=== PATIENT | female | born 1990 | race Caucasian/White ===

== ENCOUNTER 2020-09-01 12:11 | Emergency (ER) | payer OTHER, SELFPAY ==
[2020-09-01 12:31] VITALS: BP 125/61; PULSE 91; RESP 17; TEMP 36.9; O2SAT 98; BMI 34.1
--- NOTE | 2020-09-01 12:46 | ED.GENADULT ---
HPI - General Adult General Chief complaint: General Medical <DEEPAK Segura Last Filed: 09/01/20 12:49> Stated complaint: SORE THROAT <DEEPAK Segura Last Filed: 09/01/20 12:49> Time Seen by Provider: 09/01/20 12:32 <DEEPAK Segura Last Filed: 09/01/20 12:49> Source: patient <DEEPAK Segura Last Filed: 09/01/20 12:49> Mode of arrival: ambulatory <DEEPAK Segura Last Filed: 09/01/20 12:49> History of Present Illness HPI narrative: 30-year-old female with no significant past medical history presenting to ED complaining of sore throat and left ear pain since yesterday. Reports difficulty/pain with swallowing. Denies fever, chills, cough, CP/SOB, exposure to COVID-19 <DEEPAK Segura Last Filed: 09/01/20 12:49> Related Data Home medications: Previous Rx's Medication Instructions Recorded clindamycin HCl 300 mg PO TID 10 Days #30 cap 09/01/20 <DEEPAK Segura Last Filed: 09/01/20 12:49> Allergies/adverse reactions: Allergies Allergy/AdvReac Type Severity Reaction Status Date / Time amoxicillin Allergy Shortness Verified 09/01/20 12:34 of Breath ibuprofen Allergy Hives Verified 09/01/20 12:34 [From DayQuil Sinus Pressure/Pain] pseudoephedrine Allergy Hives Verified 09/01/20 12:34 [From DayQuil Sinus Pressure/Pain] <DEEPAK Segura Last Filed: 09/01/20 12:49> Review of Systems Review of Systems: Constitutional: No Weight loss, No Fever, No Chills ENT/Mouth: +L Ear Pain, No Nasal Congestion, No Sinus Pain, No Hoarseness, + sore throat, No Rhinorrhea, + Swallowing Difficulty Cardiovascular: No Chest Pain, No SOB Respiratory: No Cough, No Sputum, No Wheezing Gastrointestinal: No Nausea, No Vomiting, No Diarrhea, No Constipation, No Abdominal pain Skin: No Skin Lesions, No rash <DEEPAK Segura Last Filed: 09/01/20 12:49> Yes all other systems are reviewed and are negative <DEEPAK Segura - Last Filed: 09/01/20 12:49> [facility] Past Medical History Attestation statement: The following information was validated with the patient. <DEEPAK Segura - Last Filed: 09/01/20 12:49> Medical History: Medical History (Updated 09/02/20 @ 00:21 by Speedy Smith) No known health problems <DEEPAK Segura - Last Filed: 09/01/20 12:49> Social History Social History: Social History Advance Directives: No Advance Directives Information Provided: Yes <DEEPAK Segura - Last Filed: 09/01/20 12:49> Physical Exam Vital Signs: Vital Signs: Last Vital Signs Temp 98.5 F 09/01/20 12:31 Pulse 91 09/01/20 12:31 Resp 17 09/01/20 12:31 BP 125/61 09/01/20 12:31 Pulse Ox 98 09/01/20 12:31 Body Mass Index 34.1 <DEEPAK Segura - Last Filed: 09/01/20 12:49> Vital Signs: Last Vital Signs Temp 98.5 F 09/01/20 12:31 Pulse 91 09/01/20 12:31 Resp 17 09/01/20 12:31 BP 125/61 09/01/20 12:31 Pulse Ox 98 09/01/20 12:31 Body Mass Index 34.1 <Truman Goel MD - Last Filed: 09/04/20 02:42> Const: General: cooperative and healthy appearing <DEEPAK Segura - Last Filed: 09/01/20 12:49> Orientation/consciousness: patient oriented x3 <DEEPAK Segura - Last Filed: 09/01/20 12:49> Limitations: no limitations <DEEPAK Segura - Last Filed: 09/01/20 12:49> HENMT: Head: Yes normal to inspection <DEEPAK Segura - Last Filed: 09/01/20 12:49> Ears: hearing grossly normal bilaterally and TM's normal bilaterally <DEEPAK Segura - Last Filed: 09/01/20 12:49> General nose exam: Normal external nose present <DEEPAK Segura - Last Filed: 09/01/20 12:49> Face and sinus: Yes normal facial exam <DEEPAK Segura - Last Filed: 09/01/20 12:49> Mouth: no drooling and no muffled voice <DEEPAK Segura - Last Filed: 09/01/20 12:49> Throat: Yes uvula midline, Yes abnormal tonsil (Bilateral tonsillar swelling, erythema, & exudates) and No peritonsillar mass <DEEPAK Segura - Last Filed: 09/01/20 12:49> Eyes: General: appearance normal, both eyes and all related structures <DEEPAK Segura - Last Filed: 09/01/20 12:49> EOM: EOMs intact bilaterally <DEEPAK Segura - Last Filed: 09/01/20 12:49> Neck: Neck: Yes normal visual inspection and Yes no meningeal signs <DEEPKA Segura - Last Filed: 09/01/20 12:49> Resp: Effort & Inspection: normal respiratory effort and no stridor <DEEPAK Segura - Last Filed: 09/01/20 12:49> Skin: Rashes: no rashes <DEEPAK Segura - Last Filed: 09/01/20 12:49> Wounds: no wounds <DEEPAK Segura - Last Filed: 09/01/20 12:49> Neuro: General: patient oriented x3 and no meningeal signs <DEEPAK Segura - Last Filed: 09/01/20 12:49> Gait exam (Neuro): Normal gait present <DEEPAK Segura - Last Filed: 09/01/20 12:49> Extrem: General: Yes normal to inspection <DEEPAK Segura - Last Filed: 09/01/20 12:49> Course Course Course Narrative: I have reviewed the chart <Truman Goel MD - Last Filed: 09/04/20 02:42> Medical Decision Making MDM Narrative Medical decision making narrative: On exam VSS, NAD/well-appearing, exam consistent with strep pharyngitis. No respiratory compromise, talking in complete sentences, in no respiratory distress Will give p.o. 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 <DEEPAK Segura - Last Filed: 09/01/20 12:49> Lab Data Labs: Lab Results 09/01/20 Range/Units 12:56 COVID-19 ([facility]) Negative (Negative) COVID-19 Clin Com See Note <DEEPAK Segura - Last Filed: 09/01/20 12:49> Lab Results 09/01/20 Range/Units 12:56 COVID-19 ([facility]) Negative (Negative) COVID-19 Clin Com See Note <Truman Goel MD - Last Filed: 09/04/20 02:42> Discharge Plan Discharge Clinical Impression: Pharyngitis <DEEPAK Segura - Last Filed: 09/01/20 12:49> Patient Disposition: Home, Self-Care <DEEPAK Segura - Last Filed: 09/01/20 12:49> Instructions: Strep Throat (ED) <DEEPAK Segura - Last Filed: 09/01/20 12:49> Additional Instructions: You do have strep throat Clindamycin as antibiotic, take as prescribed Your given a dose of an oral steroid in the ED, that should help with the swelling In addition take Tylenol and Motrin at home for pain/swelling Your tested for COVID-19, the results should be back within a few hours, you will get a phone call In the meantime you need to self isolate, do not share drinks Based on your symptoms and history we have sent a COVID-19. Although your RESULT IS PENDING at this time. RESULTS should return within 72 hours. At this time you will be contacted with either NEGATIVE OR POSITIVE results. -Please wait until we contact you for your results. At this time you will be okay for discharge. Please plan for self quarantine for up to 14 days. Do not expose yourself to others. You may not go to work. If testing does come back negative you may return to activities as long as you are no longer having any symptoms for at least 3 days. Please continue to follow cold instructions and wash your hands frequently. You may take Tylenol as directed on the bottle for pain or fever. Patient seen in the emergency department on 04/17/2020 and should be excused from work until negative test results AND until 72 hours without any symptoms AND at least 10 days have passed since symptoms first appeared or since last exposure to COVID-19 positive patient CDC Guidelines for home isolation: - Stay away from others - WEAR A MASK if you are sick AND STAY HOME - Cover your mouth and nose with a tissue when you cough or sneeze. Dispose of tissues in a lined trash can and wash your hands immediately with soap and water for at least 20 seconds. If soap and water are not available, clean hands with alcohol-based hand referral agent that contains at least 60% alcohol. - Clean your hands often with soap and water for at least 20 seconds - Avoid touching your eyes, nose and mouth with unwashed hands - Do not share dishes, drinking glasses, cups, eating utensils, towels, or bedding with other people in your home. After using these items, wash them thoroughly with soap and water or put in the mixing plant operator. - Clean high-touch surfaces in your isolation area ( sick room and bathroom) every day; let a caregiver clean and disinfect high-touch surfaces in other areas of the home. Clean the area or item with soap and water or another detergent if it is dirty. Then, use a household disinfectant. - Limit contact with pets and animals: If you must care for a pet, wash your hands before and after interacting with them) <DEEPAK Segura - Last Filed: 09/01/20 12:49> Prescriptions: New clindamycin HCl 300 mg capsule 300 mg PO TID 10 Days Qty: 30 RF: 0 <DEEPAK Segura - Last Filed: 09/01/20 12:49> Referrals: Physician,Unknown [Primary Care Provider] - 2 days <DEEPAK Segura - Last Filed: 09/01/20 12:49> Stand Alone Forms: Work/School Release <DEEPAK Segura - Last Filed: 09/01/20 12:49> Interventions: ED Discharge Assessment Last Done: 09/01/20 13:03 <DEEPAK Segura - Last Filed: 09/01/20 12:49> Discharge Date/Time: 09/01/20 13:03 <DEEPAK Segura - Last Filed: 09/01/20 12:49>
[2020-09-01] MEDS: dexAMETHasone 2 MG TABLET 10 MG PO (12:52)
[2020-09-01 13:25] LABS: COVID-19 Test Negative (Negative)
== END 2020-09-01 13:03 | disposition home or self-care (01) ==
PROVIDERS: Physician Assistant; Emergency Provider Emergency Medicine
DX: J02.9 Acute pharyngitis, unspecified (principal); Z20.828 Contact with and (suspected) exposure to other viral communicable diseases
CPT/HCPCS: 87071; 87635; 87880; 99283; J8540

== ENCOUNTER 2020-09-15 14:32 | Outpatient (REF) | payer OTHER, SELFPAY ==
[2020-09-15 15:04] LABS: COVID-19 Test Positive (Negative)
== END 2020-09-15 14:33 | disposition home or self-care (01) ==
LOC: HO.EMPCOV 14:32
PROVIDERS: Visit Provider Internal Medicine
DX: Z20.828 Contact with and (suspected) exposure to other viral communicable diseases (principal)
CPT/HCPCS: 87635; C9803

== ENCOUNTER 2021-03-30 19:50 | Outpatient (REF) | payer OTHER, SELFPAY ==
[2021-03-30 21:17] LABS: COVID-19 Test Negative (Negative); IDNOW Serial# 9DD0AD1C
== END 2021-03-30 19:51 | disposition home or self-care (01) ==
LOC: HO.LAB 19:50
PROVIDERS: Visit Provider Internal Medicine
DX: Z20.822 Contact with and (suspected) exposure to COVID-19 (principal)
CPT/HCPCS: 36415; 87635

== ENCOUNTER 2022-01-04 06:04 | Emergency (ER) | payer OTHER, SELFPAY ==
[2022-01-04 06:14] VITALS: BP 149/79; PULSE 104; RESP 16; TEMP 37.3; O2SAT 100; BMI 36.6
--- NOTE | 2022-01-04 06:32 | ED.URI ---
HPI - URI/Sore Throat General Chief Complaint: Upper Respiratory Symptoms Stated Complaint: sore throat, post nasal drip Time Seen by Provider: 01/04/22 06:31 Source: patient Mode of arrival: ambulatory Limitations: no limitations History of Present Illness MD elicited complaint: sore throat and nasal congestion Onset (ago): day(s) (last night before bed) Consistency: constant Severity: mild Description of mucous: clear Able to tolerate fluids by mouth: Yes Exacerbating factors: swallowing Relieving factors: nothing Context: sick contacts (son has sore throat) Associated symptoms: chills, nasal congestion and sore throat Treatments prior to arrival: none Related Data Previous Rx's Medication Instructions Recorded clindamycin HCl 300 mg capsule 300 mg PO TID 10 Days #30 cap 09/01/20 azithromycin 250 mg tablet See Rx Instructions .ROUTE 01/04/22 .COMPLEX #6 tab Allergies Allergy/AdvReac Type Severity Reaction Status Date / Time amoxicillin Allergy Shortness Verified 09/01/20 12:34 of Breath ibuprofen Allergy Hives Verified 09/01/20 12:34 [From DayQuil Sinus Pressure/Pain] pseudoephedrine Allergy Hives Verified 09/01/20 12:34 [From DayQuil Sinus Pressure/Pain] Review of Systems Review of Systems: Constitutional : no Fever, positive Chills, no fatigue, no Malaise ENT/Mouth : positive sore throat, positive runny nose Eyes: No Discharge Cardiovascular : No Chest Pain, No SOB Respiratory : No Cough, No Sputum Gastrointestinal : No Nausea, No Vomiting, No Diarrhea Genitourinary : No Dysuria, No Urinary Frequency Musculoskeletal : no Myalgia Skin : No rash Neuro : No Headache PMFSH Past Medical History Medical History Asthma Social History Social History (Updated 01/04/22 @ 06:38 by Fiona Nielsen DO) Patient Tobacco Use Status: Never used Tobacco Advance Directives: No Patient : No Physical Exam Vital Signs: Vital Signs: Last Vital Signs Temp 99.2 F 01/04/22 06:14 Pulse 104 H 01/04/22 06:14 Resp 16 01/04/22 06:14 BP 149/79 H 01/04/22 06:14 Pulse Ox 100 01/04/22 06:14 BMI result Body Mass Index 36.6 Appearance: Alert. Oriented X3. No acute distress. Eyes: Pupils equal, round and reactive to light. ENT: Pharynx - uvula midline, moderate tonsilar swelling some white patches noted. tolerating secretions Neck: Normal inspection. Neck supple. CVS: Normal heart rate and rhythm. Pulses normal. Respiratory: No respiratory distress. Breath sounds normal. Abdomen: Soft and non-tender. Skin: Skin warm and dry. Normal skin color. Normal skin turgor. Extremities: No lower extremity edema. No calf ttp Neuro: Oriented X 3. No motor deficit. No sensory deficit. MDM - URI/Sore Throat MDM Narrative Medical decision making narrative: 31 yo female here with URI symptoms mostly sore throat with child who also has sore throat - not toxic, tolerating secretions vaccinated against COVID x 2 and has had COVID x 2. Suspect strep A pharyngitis. At this time no concern for deeper space infection. Will start on zpack and DC home Lab Data Labs: Lab Results 01/04/22 01/04/22 Range/Units 06:16 06:39 COVID-19 ([facility]) Negative (Negative) COVID-19 Clin Com See Note S. pyogenes GrpA AIDE Negative (Negative) Discharge Plan Discharge Clinical Impression: Acute infective tonsillitis Qualifiers: Pharyngitis/tonsillitis etiology: other specified organisms Qualified Code(s): J03.80 - Acute tonsillitis due to other specified organisms Patient Disposition: Home, Self-Care Instructions: Tonsillitis (ED) Additional Instructions: return to ED for any worsening symptoms or concerns COVID test negative strep test negative, being treated for tonsillitis. Prescriptions: New azithromycin 250 mg tablet See Rx Instructions .ROUTE .COMPLEX Qty: 6 0RF Rx Instructions: For 250 mg dose pack: take 500 mg today (day 1), then 250 mg for 4 days (days 2-5) No Action clindamycin HCl 300 mg capsule 300 mg PO TID 10 Days Qty: 30 0RF Stand Alone Forms: Work/School Release
[2022-01-04 06:37] LABS: COVID-19 Test Negative (Negative)
[2022-01-04 06:55] LABS: Strep A Nucleic Acid Negative (Negative)
== END 2022-01-04 07:06 | disposition home or self-care (01) ==
PROVIDERS: Emergency Medicine; Emergency Provider Emergency Medicine; PCP Internal Medicine
DX: J03.80 Acute tonsillitis due to other specified organisms (principal); Z20.822 Contact with and (suspected) exposure to COVID-19; R50.9 Fever, unspecified
CPT/HCPCS: 36415; 87635; 87651; 99283

== ENCOUNTER 2023-07-28 16:15 | Outpatient (REF) | payer OTHER, SELFPAY | END 2023-07-28 16:16 | disposition home or self-care (01) | LOC: HO.LAB 16:15 | PROVIDERS: Visit Provider Obstetrics & Gynecology | DX: Z13.89 Encounter for screening for other disorder (principal) ==

== ENCOUNTER 2023-12-20 09:48 | Emergency (ER) | payer OTHER, SELFPAY ==
--- NOTE | ~2023-12-20 | CT_ITS ---
EXAMINATION: CT head for stroke CLINICAL INFORMATION: Reason for Exam R sided facial numbness COMPARISON: None. TECHNIQUE: Contiguous axial imaging was performed from the skull base to vertex without intravenous contrast. Sagittal and coronal reformatted images were obtained. This CT examination was performed using dose optimization techniques as appropriate, variously including the following: * Automated exposure control * Adjustment of mA and/or kV according to patient size (this includes techniques or standardized protocols for targeted exams where dose is matched to indication/reason for exam; i.e. extremities or head) Use of iterative reconstruction technique DLP: 813 mGy-cm FINDINGS: No acute osseous or soft tissue abnormality. The mastoid air cells and visualized portions of the paranasal sinuses are well aerated. There is no evidence of acute intracranial hemorrhage or territorial infarction. No abnormal mass effect or midline shift is seen. Mercedes to white matter differentiation is well preserved. No extra-axial fluid collections are identified. No hydrocephalus. No significant volume loss. There is apparent hypodensity in the anterior right greater than left anterior frontal lobes which is highly favored to be artifactual. Otherwise, there is no abnormal attenuation within the brain parenchyma. CT/CT head for stroke IMPRESSION: Apparent parenchymal hypodensity involving the right greater than left anterior frontal lobes is highly favored to be artifactual. No acute intracranial abnormality including hemorrhage, mass effect, hydrocephalus, or acute territorial edematous infarction. . Above impression was communicated to Angelita Nielsen DO on 12/20/2023 10:37 AM
--- NOTE | ~2023-12-20 | CT_ITS ---
EXAMINATION: CT ANGIOGRAM HEAD CT ANGIOGRAM NECK CLINICAL INFORMATION: Reason for Exam R sided facial numbness COMPARISON: Earlier same day noncontrast head CT TECHNIQUE: Initial noncontrast design chief imaging of the head and neck was performed. Comparison is made with noncontrast head CT from earlier today. Test bolus sequences followed by intravenous administration 70 mL of Omnipaque 350. Helical imaging was performed in the axial plane from the aortic arch to the skull vertex. Delayed postcontrast imaging of the head was also performed. The data was processed at the space technologist workstation for generation of MIP sequences. Angled MIPs and volume rendered reformatted images were also generated at an offline 3D workstation. Stenoses are assessed in accordance with NASCET criteria unless otherwise indicated. DLP: 1581 mGy-cm This CT examination was performed using dose optimization techniques as appropriate, variously including the following: *Automated exposure control. *Adjustment of mA and/or kV according to patient size (this includes techniques or standardized protocols for targeted exams where dose is matched to indication/reason for exam; i.e. extremities or head). *Use of iterative reconstruction technique. FINDINGS: CT Head: Please refer to report from immediately preceding noncontrast head CT. No abnormal intracranial enhancement. CT Neck: The thyroid gland and remaining cervical soft tissues are within normal limits. No significant abnormalities of the cervical spine. CT Upper Chest: The visualized lung apices and upper mediastinum are within normal limits. Neck CTA: The proximal vessels in the mediastinum and lower neck are somewhat suboptimally evaluated due to streak artifact related to patient body habitus. Aortic Arch: Normal contour and caliber. Two vessel branching pattern of the arch with left common carotid artery arising from the brachiocephalic trunk. Great Vessel Origins: No significant stenosis of the branch origins. Right Common Carotid Artery: No focal stenosis or occlusion. Cervical Right Internal Carotid Artery: Normal opacification without focal stenosis or occlusion. Left Common Carotid Artery: No focal stenosis or occlusion. Cervical Left Internal Carotid Artery: Normal opacification without focal stenosis or occlusion. Cervical Right Vertebral Artery: No focal stenosis or occlusion. Cervical Left Vertebral Artery: No focal stenosis or occlusion. Brain CTA: Intracranial Internal Carotid Arteries: No focal stenosis or occlusion. Right Anterior Cerebral Artery: Normal A1 segment. Normal opacification of the distal FER segments. Left Anterior Cerebral Artery: Normal A1 segment. Normal opacification of the distal FER segments. Anterior Communicating Artery: Normal. Right Middle Cerebral Artery: Normal M1 segment of the MCA without focal stenosis or occlusion. Normal arborization of the distal segments. Left Middle Cerebral Artery: Normal M1 segment of the MCA without focal stenosis or occlusion. Normal arborization of the distal segments. Right Vertebral Artery: Normal V4 segment. Left Vertebral Artery: Normal V4 segment. Basilar Artery: Normal without focal stenosis or occlusion. Normal appearance of the proximal superior cerebellar arteries. Right Posterior Cerebral Artery: Normal P1 segment. Normal opacification of the distal EQUIPMENT ENGINEERING TECHNICIAN segments. Left Posterior Cerebral Artery: Normal P1 segment. Normal opacification of the distal EQUIPMENT ENGINEERING TECHNICIAN segments. Normal opacification of the superior sagittal, straight, transverse, and sigmoid sinuses. CT/CT angio head neck stroke IMPRESSION: No arterial high grade stenosis or large vessel occlusion in the head or neck. Above impression was communicated to Angelita Nielsen DO on 12/20/2023 10:42 AM
[2023-12-20 09:56] VITALS: BP 143/57; PULSE 79; RESP 18; TEMP 24.4; O2SAT 99; BMI 36.3
[2023-12-20 10:04] VITALS: RESP 18
--- NOTE | 2023-12-20 10:10 | ECG_ITS ---
Test Reason : facial numbness Blood Pressure : / mmHG Vent. Rate : 076 BPM Atrial Rate : 076 BPM P-R Int : 184 ms QRS Dur : 078 ms QT Int : 406 ms P-R-T Axes : 030 037 012 degrees QTc Int : 456 ms Normal sinus rhythm Low voltage QRS Borderline ECG No previous ECGs available Referred By: Angelita Nielsen Electronically Signed By:ROSE OAKES
[2023-12-20 10:19] LABS: MANUAL DIFF FLAG NO
[2023-12-20 10:20] LABS: Basophils Percent Auto 0.3 % (0-2); Eosinophils Absolute Auto 0.3 X10*3/uL (0.0-0.4); Eosinophils Percent Auto 2.3 % (0-4); Hemoglobin 11.9 g/dl (12.0-16.0); Imm Gran Abs Auto 0.03 X10*3/uL (0.00-0.03); Imm Gran Pct Auto 0.3 % (0.0-0.4); Lymphocytes Percent Auto 37.1 % (20-40); Mean Corpuscular Hemoglobin 27.8 pg (27.0-33.0); Mean Corpuscular Volume 81.8 fL (80.0-98.0); Mean Platelet Volume 8.6 fL (9.4-12.3); Monocytes Absolute Auto 0.6 X10*3/uL (0.1-1.2); Monocytes Percent Auto 5.1 % (2-11); Neutrophils Percent Auto 54.9 % (45-73); Platelet Count 306 X10*3/uL (160-400); Red Blood Count 4.28 X10*6/uL (4.20-5.50); Red Cell Distribution Width 12.5 % (11.0-16.0); White Blood Count 10.9 X10*3/uL (4.8-10.8)
--- NOTE | 2023-12-20 10:23 | PC.NURSE ---
pt is alert and oriented, skin appropriate for ethnicity, respirations even and unlabored, pt reports at 0600 stared with right sided facial numbness, right eye blurriness that is starting to improve slowly, and a headache-pt reports hx of headaches but this feels different, no light sensitivity or noise sensitivity, no visible facial droop, no arm drift and strength is strong and equal and moving all extremities. vs stable and ns on the monitor
[2023-12-20 10:29] LABS: Prothrombin Time 11.6 SEC (11.1-13.3)
--- NOTE | 2023-12-20 10:29 | ED_ITS ---
HPI - Neuro Symptoms/Deficit General Chief Complaint: Neuro Symptoms/Deficit Stated Complaint: R Side Facial Numbness Tongue Feels Heavy Time Seen by Provider: 12/20/23 10:00 Source: patient and old records reviewed Mode of arrival: ambulatory Limitations: no limitations History of Present Illness HPI Narrative: 33 yo female with PMH of migraines, idiopathic intracranial hypertension on diammox no recent LP drainage, not on OCPs or thinners. She was at work today and at 6am started with fogginess in R eye and numbness R face then headache on the R side. She still has a headache and the numbness on R face. Just dx this week with strep pharyngitis and treated with zpak. No recent trauma to the head or neck Onset (ago): hour(s) (6am today) Last Observed Normal: 06:00 Location: right face History of same: No Severity: mild Quality: numb Relieving factors: none Exacerbating factors: none Context: sudden onset On Anticoagulants: No Associated symptoms: headaches Treatments Prior to Arrival: none Related Data Previous Rx's Medication Instructions Recorded clindamycin HCl 300 mg capsule 300 mg PO TID 10 days #30 caps 09/01/20 azithromycin 250 mg tablet See Rx Instructions PO .COMPLEX #6 01/04/22 tabs Allergies Allergy/AdvReac Type Severity Reaction Status Date / Time amoxicillin Allergy Shortness Verified 12/20/23 10:02 of Breath ibuprofen Allergy Hives Verified 12/20/23 10:02 [From DayQuil Sinus Pressure/Pain] pseudoephedrine Allergy Hives Verified 12/20/23 10:02 [From DayQuil Sinus Pressure/Pain] Review of Systems 2 Review of Systems: Constitutional : No Fever, No Chills, No Fatigue ENT/Mouth : No sore throat, No Rhinorrhea Eyes: No Eye Pain, No Swelling, No Redness Cardiovascular : No Chest Pain, No SOB, No Dyspnea on Exertion Respiratory : No Cough, No Sputum Gastrointestinal : No Nausea, No Vomiting, No Diarrhea, No abdominal Pain Genitourinary : No Dysuria, No Urinary Frequency, No Hematuria, Musculoskeletal : No joint pain, No Myalgias, No Joint Swelling Skin : No Skin Lesions, No rash Neuro : No Weakness, pos Numbness, No Dizziness, positive Headache Psych : No Anxiety/Panic, No Depression All other systems reviewed and are negative [facility] Past Medical History Attestation statement: The following information was validated with the patient. Source: old records reviewed Medical History (Updated 12/20/23 @ 12:30 by Angelita Nielsen DO) Migraine Pseudotumor cerebri Asthma Social History Social History Patient Tobacco Use Status: Never used Tobacco Advance Directives: No Physical Exam 2 Vital Signs: Vital Signs: Last Vital Signs Temp 76 F L 12/20/23 09:56 Pulse 79 12/20/23 09:56 Resp 18 12/20/23 10:04 BP 143/57 H 12/20/23 09:56 Pulse Ox 99 12/20/23 09:56 O2 Del Method Room Air 12/20/23 09:56 BMI result Body Mass Index 36.3 Appearance: Alert. Oriented X3. No acute distress. Eyes: Pupils equal, round and reactive to light. no visual field deficits ENT: Pharynx normal. Neck: Normal inspection. Neck supple. CVS: Normal heart rate and rhythm. Pulses normal. Respiratory: No respiratory distress. Breath sounds normal. Abdomen: Soft and non-tender. Skin: Skin warm and dry. Normal skin color. Normal skin turgor. Extremities: No lower extremity edema. No calf ttp Neuro: Oriented X 3. No motor deficit. No sensory deficit. CN2-12 intact. Reports R facial numbness on R cheek Course Course Course Narrative: headache resolved Medications Administered Discontinued Medications Generic Name Dose Route Start Last Admin Trade Name Freq PRN Reason Stop Dose Admin Diphenhydramine HCl 25 mg 12/20/23 10:10 12/20/23 10:39 Diphenhydramine Hcl 50 Mg/Ml Vial IVPUSH 12/20/23 10:11 25 mg ONCE ONE Administration Sodium Chloride 1,000 mls @ 999 mls/hr 12/20/23 10:15 12/20/23 12:22 Ns IV 12/20/23 11:15 Infused .Q1H1M JESSICA Infusion Iohexol 100 ml 12/20/23 10:42 12/20/23 10:43 Iohexol 350 Mg/Ml 100 Ml Infus..Btl IV 12/20/23 10:43 70 ml ONCE ONE Administration Metoclopramide HCl 10 mg 12/20/23 10:10 12/20/23 10:39 Metoclopramide Hcl 10 Mg/2 Ml Vial IVPUSH 12/20/23 10:11 10 mg ONCE ONE Administration Medical Decision Making Medical Decision Making [facility] Narrative: 33 yo female with PMH of migraines, idiopathic intracranial hypertension on diammox - compliant here with c/o visual changes then facial numbness with symptoms starting at 6am. She presents at 4+ hours and CT scans done and out of window at 4.5 hours not a candidate for TNK her symptoms are so mild as well and I suspect a complex migraine. She has no visual field deficits. She has a normal BP as well. She is not toxic. I have ordered CT and CTA along with labs and IV medications for migraine. Her IOP is 17 on the R side as well Differential Diagnosis Differential Diagnoses: The differential diagnosis associated with the presentation includes complex migraine, atypical for CVA Admission/Observation Consideration of admission/observation: Escalation of care including admission/observation considered symptoms resolved, facial numbness moved to L side of face that is not consistent with stroke pattern has had hx of wandering parasthesias in the past with B12 deficiency. she notes R eye is improved has no visual loss is going to call her neuroophthalmologist on DC pressures are normal stable for DC at this time Lab Data [facility] Lab Attestation statement: I reviewed the patient's lab results. 12/20/23 10:15 12/20/23 10:15 Labs: Lab Results 12/20/23 Range/Units 10:15 WBC 10.9 H (4.8-10.8) X10*3/uL RBC 4.28 (4.20-5.50) X10*6/uL Hgb 11.9 L (12.0-16.0) g/dl Hct 35.0 L (37.0-47.0) % MCV 81.8 (80.0-98.0) fL MCH 27.8 (27.0-33.0) pg MCHC 34.0 (31.0-35.0) g/dl RDW 12.5 (11.0-16.0) % Plt Count 306 (160-400) X10*3/uL MPV 8.6 L (9.4-12.3) fL Immature Gran % (Auto) 0.3 (0.0-0.4) % Neut % (Auto) 54.9 (45-73) % Lymph % (Auto) 37.1 (20-40) % Mobile % (Auto) 5.1 (2-11) % Eos % (Auto) 2.3 (0-4) % Baso % (Auto) 0.3 (0-2) % Lymph # (Auto) 4.0 (1.2-4.9) X10*3/uL Mobile # (Auto) 0.6 (0.1-1.2) X10*3/uL Eos # (Auto) 0.3 (0.0-0.4) X10*3/uL Baso # (Auto) 0.0 (0.0-0.2) X10*3/uL Abs Immat Gran (auto) 0.03 (0.00-0.03) X10*3/uL Absolute Neuts (auto) 6.0 (2.0-8.3) x10*3/uL Absolute Nucleated RBC 0.000 (0.0-0.012) X10*3/uL Nucleated RBC % (auto) 0.0 (0.0-0.2) /100WBC PT 11.6 (11.1-13.3) SEC INR 1.0 (0.9-1.1) Sodium 137 (135-145) mmol/L Potassium 4.1 (3.3-5.1) mmol/L Chloride 106 (96-108) mmol/L Carbon Dioxide 25 (22-29) mmol/L Anion Gap 10 L (12-20) BUN 16 (9-16) mg/dL Creatinine 0.65 (0.5-1.4) mg/dL Estim Creat Clear Calc 140.7 Estimated GFR > 60 Random Glucose 100 (60-115) mg/dL Calcium 9.3 (8.4-10.2) mg/dL Magnesium 2.0 (1.6-2.6) mg/dL Total Bilirubin 0.3 (0.0-1.0) mg/dL Direct Bilirubin 0.1 (0.0-0.5) mg/dL AST 15 (5-31) U/L ALT 20 (0-31) U/L Alkaline Phosphatase 63 (39-117) U/L Total Protein 7.8 (6.5-8.0) g/dL Albumin 4.0 (3.5-5.0) g/dL Beta HCG, Quant < 2 mIU/mL Independent Interpretation I performed an independent interpretation of an: EKG and CT Scan (no ICH, no acute findings, no LVO) Interpretation: Rate: 76 Rhythm: NSR [employer]: normal Normal P waves. Normal KIMBERLY. Normal QRS complex. ST T wave : normal no JAYANT qTC: 456 prior studies: no acute ischemia The study has been interpreted contemporaneously by me. . Radiology Impression Discussion of test interpretation with radiology: I discussed test interpretation with the radiologist and I have reviewed the radiologist's reading. Radiologist Impression: CT : no ICH 1035am External Record Review External record reviewed: Inpatient record NIH Stroke Scale Internal: Initial- Upon Arrival Level of Consciousness: Alert Level of Consciousness Questions: Answers both questions correctly Level of Consciousness Commands: Performs both tasks correctly Best Gaze: Normal Visual: No visual loss Facial Palsy: Normal Motor Arm (Right): No drift Motor Arm (Left): No drift Motor Leg (Right): No drift Motor Leg (Left): No drift Limb Ataxia: Absent Sensory: Mild to moderate sensory loss Best Language: No aphasia Dysarthia: Normal Extinction and Inattention: No abnormality Score: 1 Critical Care Time Critical Care Time Critical Care Time: Yes Total Critical Care Time: 35 Attestation: stroke protocol, CTA workup, IVF and medications. I attest to this time spent taking care of the patient Discharge Plan Discharge Clinical Impression: Facial paresthesia Acute headache Qualifiers: Headache type: unspecified Intractability: not intractable Qualified Code(s): R 51.9 - Headache, unspecified Patient Disposition: Home, Self-Care Instructions: Acute Headache (ED), Paresthesia (ED) Additional Instructions: CT head and CTA negative at this time pressure in R eye is 17 labs stable please call your eye doctor on discharge return for worsening symptoms or any other concerns take it easy and rest today Prescriptions: No Action clindamycin HCl 300 mg capsule 300 mg PO TID 10 Days Qty: 30 0RF azithromycin 250 mg tablet See Rx Instructions .ROUTE .COMPLEX Qty: 6 0RF Rx Instructions: For 250 mg dose pack: take 500 mg today (day 1), then 250 mg for 4 days (days 2-5)
[2023-12-20] MEDS: Metoclopramide HCl 10 MG/2 ML VIAL IVPUSH (10:39)
[2023-12-20] MEDS: diphenhydrAMINE HCL 50 MG/ML VIAL 25 MG IVPUSH (10:39)
[2023-12-20] MEDS: 0.9 % Sodium Chloride 1,000 ML 999 ML IV (10:39)
[2023-12-20 10:43] LABS: Alanine Aminotransferase 20 U/L (0-31); Alkaline Phosphatase 63 U/L (39-117); Anion Gap 10 (12-20); Aspartate Amino Transferase 15 U/L (5-31); Bilirubin Direct 0.1 mg/dL (0.0-0.5); Bilirubin Total 0.3 mg/dL (0.0-1.0); Blood Urea Nitrogen 16 mg/dL (9-16); Calcium 9.3 mg/dL (8.4-10.2); Carbon Dioxide 25 mmol/L (22-29); Chloride 106 mmol/L (96-108); Creatinine Clr Calc Pharmacy 140.7; Estimated Glomerular Filt Rate > 60; Glucose Random 100 mg/dL (60-115); HCG Quantitative < 2 mIU/mL; Potassium 4.1 mmol/L (3.3-5.1); Sodium 137 mmol/L (135-145); Total Protein 7.8 g/dL (6.5-8.0)
[2023-12-20] MEDS: iohexoL 350 MG/ML 100 ML INFUS..BTL IV (10:43)
[2023-12-20 12:36] VITALS: BP 117/63; PULSE 82; RESP 16; TEMP 36.8; O2SAT 99
== END 2023-12-20 12:39 | disposition home or self-care (01) ==
PROVIDERS: Emergency Provider Emergency Medicine; PCP Internal Medicine
DX: R20.2 Paresthesia of skin (principal); R51.9 Headache, unspecified; G93.2 Benign intracranial hypertension; R29.701 NIHSS score 1
CPT/HCPCS: 36415; 70450; 70496; 70498; 80048; 80076; 83735; 84702; 85025; 85610; 93005; 96361; 96374; 96375; 99284; J1200; J2765; Q9967

== ENCOUNTER → 2023-12-20 10:10 | Outpatient (BNV) | payer OTHER, SELFPAY | PROVIDERS: Emergency Provider Emergency Medicine; PCP Internal Medicine; Visit Provider Internal Medicine | DX: R20.2 Paresthesia of skin (principal) | CPT/HCPCS: 93010 ==

== ENCOUNTER → 2025-08-06 22:00 | Outpatient (REF) | payer OTHER, SELFPAY ==
--- OUTSIDE RECORDS SUMMARY | 2025-08-06 22:18 | XMS_ITS ---
Author Name [facility] Organization Unknown Care Team Organization Name Specialty Phone Email Start Date End Da te [facility] Abe Weaver Primary Care 08/30/2022 06/10/20 24
--- OUTSIDE RECORDS SUMMARY | 2025-08-06 22:18 | XMS_ITS | Clinical Summary ---
Author Organization [facility] Address [address] [place] [address] Care Team Providers Care Ehs Manager Name Role Phone Pcp, No Primary Care Provider Unavailabl e Encounters Date Type Department Care Team Description 05/14/2025 Travel from Last 3 Months Immunizations Immunization Administration Dates Next Due Hep B, Adolescent or Pediatric 06/01/2000,1998,08/03/1999 MMR 09/09/1992,12/28/1989 Tdap 03/09/2017 Social History Tobacco Use Types Packs/Day Years Used Date Smoking Tobacco: Never Assessed Comments Unknown Sex and Gender Information Value Date Recorded Sex Assigned at Not on file Legal Sex Female 10:07 AM EDT Gender Identity Not on file Sexual Orientation Not on file Plan of Treatment Health Maintenance Due Date Last Done Comments Hepatitis C Virus Screening 1988 HIV Screening 2001 Pap Smear (Ages 21-65) 2009 Influenza Vaccine 05/23/2025 07/13/2015 COVID-19 Vaccine (3 - 2024-2 6 season) 2025 07/23/2021, 07/02/2021 DTaP/Tdap/Td Vaccines (2 - T d or Tdap) 03/09/2027 03/09/2017 Hepatitis B Vaccines Completed 06/01/2000, 09/08/1999, 08/03/1999 HPV Vaccines (No Doses Required) Completed Pneumococcal Vaccine: Pediatric (0-5 Years) and At-Risk Patients (6 to 49 Years) Aged Out No longer eligible b ased on patient's age to complete this topic Care Teams Ehs Manager Relationship Specialty Start Date End Date Pcp, No PCP - General General Medicine 04/16/25
--- OUTSIDE RECORDS SUMMARY | 2025-08-06 22:18 | XMS_ITS | Clinical Summary ---
Author Organization [facility] Address [address] [place] [address] Phone Care Team Providers Care Supervisor Cabinetmaker Name Role Phone Unavailable Primary Care Provider Unavailabl e Immunizations Immunization Administration Dates Next Due DT 10/05/1998 DTP 09/09/1992, 0,07/27/1989,04/27,1988 HPV, Quadrivalent 09/11/2008 Hep B, ped/adol 06/01/2000,09/08/1999,08/03/1999 Hib (PRP-T) 02/15/1990 Influenza, injectable, trivalent 09/11/2008,08/23 MMR 09/09/1992,12/28/1989 Meningococcal Conj (Menactra) MCV4P 09/11/2008 OPV 09/09/1992, 0,07/27/1989,04/27,1988 Pneumococcal Polysaccharide 01/06/1993 Td (adult) (MBL), 2 Lf tetan us toxoid, PF, adsorbed 10/22/1998 Tdap 05/28/2008 Family History Relation Name Status Comments Brother 1 Alive Brother: Alive and well, Alive and well Brother 2 Alive Brother: Alive and well, Alive and well Father Alive Father: d 05/27 Mother Alive Mother: Alive a nd well Sister 1 Alive Sister: Alive a nd well, Alive and well Sister 2 Alive Sister: Alive a nd well, Alive and well Social History Tobacco Use Types Packs/Day Years Used Date Smoking Tobacco: Never Assessed Comments Unknown Sex and Gender Information Value Date Recorded Sex Assigned at Not on file Legal Sex Female 4:36 PM EDT Gender Identity Not on file Sexual Orientation Not on file Plan of Treatment Health Maintenance Due Date Last Done Comments Varicella Vaccines (1 of 2 - 13+ 2-dose series) 2001 HPV Vaccines (2 - 3-dose series) 10/09/2008 09/11/2008 DTaP,Tdap,and Td Vaccines (7 - Td or Tdap) 05/28/2018 05/28/2008, 10/22/1998, 10/05/1998, Additional history exists Influenza Vaccines (#1) 2025 09/11/2008, 09/08 COVID-19 Vaccine ( season) 2025 HIB Vaccines Completed 02/15/1990 IPV Vaccines Completed 09/09/1992, 05/1990, 07/27/1989, Additional history exists MMR Vaccines Completed 09/09/1992, 12/28/1989 Pneumococcal Vaccine Aged Out 01/06/1993 No long er eligible based on patient's age to complete this topic Hepatitis B Vaccines Completed 06/01/2000, 09/08/1999, 08/03/1999 Meningococcal Vaccine Aged Out 09/11/2008 No kati tiny eligible based on patient's age to complete this topic Hepatitis A Vaccines Aged Out No long er eligible based on patient's age to complete this topic Men B Vaccine Aged Out No longer elig ible based on patient's age to complete this topic
--- OUTSIDE RECORDS SUMMARY | 2025-08-06 22:18 | XMS_ITS | Encounter Summary ---
Author Organization [facility] Address [address] [place] [id number] Phone Care Team Providers Care Vessel Traffic Officer Name Role Phone Selma Cohen MD Primary Care Provider Encounter Details Date Type Department Care Team (Late st Contact Info) Description 06/08/2017 Conversion Encounter [facility] [address] [place] [address] Social History Tobacco Use Types Packs/Day Years Used Date Smoking Tobacco: Never Assessed Comments Unknown Sex and Gender Information Value Date Recorded Sex Assigned at Not on file Legal Sex Female 4:36 PM EDT Gender Identity Not on file Sexual Orientation Not on file documented as of this encounter Plan of Treatment Not on file documented as of this encounter Visit Diagnoses Not on filedocumented in this encounter Care Teams Vessel Traffic Officer Relationship Specialty Start Date End Date Selma Cohen MD [address] [place] [address] PCP - General 06/02/17 02/02/23 documented as of this encounter
== END ==
LOC: HO.SL 22:00
PROVIDERS: PCP Internal Medicine; Visit Provider Nurse Practitioner Primary Care
DX: Z13.89 Encounter for screening for other disorder (principal)